=== PATIENT | female | born 1985 | race Caucasian/White ===

== ENCOUNTER 2016-07-03 10:36 | Emergency (ER) | payer OTHER ==
[~2016-07-03] VITALS: Ht 160 cm; Wt 59.0 kg
[2016-07-03 11:54] VITALS: BP 127/88
[2016-07-03 11:55] VITALS: BP 127/88
--- NOTE | 2016-07-03 15:43 | Emergency Room Report ---
History of Present Illness General Chief Complaint: Medical Clearance Source: Patient Present Illness HPI 30-year-old female presents to ED for evaluation. Patient is in police custody. Here for skilled nursing clearance. Upon arrival patient has no complaints. Patient initially complained to [employer] of pain everywhere. Denies any pain here. No other associated symptoms. No aggravating relieving factors. Allergies: Coded Allergies: No Known Allergies (Unverified , 07/03/16) Patient History Past Medical History: none Past Surgical History: none Pertinent Family History: none Social History: Denies: alcohol use, drug use, smoking Last Menstrual Period: unk Now: No Immunizations: UTD Reviewed Nursing Documentation: PMH: Agreed, PSxH: Agreed Nursing Documentation-PMH Past Medical History: No Stated History Review of Systems All Other Systems: negative except mentioned in HPI Physical Exam Vital Signs Date Time Temp Pulse Resp B/P Pulse Ox O2 Delivery O2 Flow Rate FiO2 07/03/16 10:27 98.2 96 16 149/81 99 Room Air Sp02 EP Interpretation: reviewed, normal General Appearance: no apparent distress, alert, GCS 15, non-toxic Head: normocephalic, atraumatic Eyes: bilateral eye PERRL, bilateral eye normal inspection ENT: hearing grossly normal, normal pharynx, no angioedema, normal voice Neck: full range of motion, supple/symm/no masses Respiratory: chest non-tender, lungs clear, normal breath sounds, speaking full sentences Cardiovascular #1: regular rate, rhythm, no edema Cardiovascular #2: 2+ carotid (R), 2+ carotid (L), 2+ radial (R), 2+ radial (L) , 2+ dorsalis pedis (R), 2+ dorsalis pedis (L) Gastrointestinal: normal bowel sounds, non tender, soft, non-distended, no guarding, no rebound Rectal: deferred Genitourinary: normal inspection, no CVA tenderness Musculoskeletal: back normal, gait/station normal, normal range of motion, non- tender Neurologic: alert, oriented x3, responsive, motor strength/tone normal, sensory intact, speech normal Psychiatric: judgement/insight normal, memory normal, mood/affect normal, no suicidal/homicidal ideation Reflexes: 3+ bicep (R), 3+ bicep (L), 3+ tricep (R), 3+ tricep (L), 3+ knee (R) , 3+ knee (L) Skin: normal color, no rash, warm/dry, well hydrated Lymphatic: no adenopathy Medical Decision Making Diagnostic Impression: Primary Impression: Medical clearance for incarceration ER Course Hospital Course 30-year-old female presents to ED for and skilled nursing clearance. Denies any complaints or injuries prior to arrival Clinical course Patient placed on stretcher. Handcuffs. After initial history, physical exam reveals a female in no acute distress. physical exam was unremarkable. I believe patient be safely discharged into police custody. Diagnosis - medical clearance for incarceration stable and discharged into police custody Last Vital Signs Date Time Temp Pulse Resp B/P Pulse Ox O2 Delivery O2 Flow Rate FiO2 07/03/16 11:55 98.2 59 16 127/88 99 Room Air Status: improved Disposition: D/C TO LAW ENFORCEMENT IN CUST Condition: Stable Referrals: NOT CHOSEN IPA/,REFERRING (PCP) Departure Forms: Care Home Clearance Patient Instructions: Substance Use Disorder GABBY PRASAD M.D. July 03, 2016 15:43
== END 2016-07-03 12:33 ==
LOC: EDBD 10:36 → EMR 11:44
DX: Z02.2 Encounter for examination for admission to residential institution (principal)
CPT/HCPCS: 99283